=== PATIENT | male | born 1975 | race Two or more races ===

== ENCOUNTER 2017-08-11 19:59 | Emergency (ER) | payer OTHER ==
[~2017-08-11] VITALS: Ht 170.2 cm; Wt 63.5 kg
[2017-08-11 20:16] VITALS: BP 116/79
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
[2017-08-11] MEDS ORDERED: Tetanus/Diptheria/Pertussis Vaccine 0.5ml Syr IM ONE (20:45)
[2017-08-11] MEDS ORDERED: TYLENOL EXTRA500 MG ORAL (21:38)
[2017-08-11] MEDS ORDERED: Bacitracin Oint UD TOPIC ONE (21:45)
[2017-08-11 21:56] VITALS: BP 132/86
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
--- NOTE | 2017-08-12 09:48 | Diagnostic Imaging Report ---
Indication: Headache Technique: Contiguous 5 mm thick transaxial imaging of the head obtained in a Siemens Sensation [address] scanner. Soft tissue and bone windows generated. Automatic Exposure Control was utilized. Total Dose length Product (DLP): 3689.[address] Dose Index Volume (CTDIvol): 70.38,70.38,28.19,28.19 mGy Comparison: none Findings: There is mild prominence of the ventricles, basal cisterns, and cerebral sulci consistent with atrophy. Mild, nonspecific, white matter hypoattenuation is noted throughout the brain consistent with chronic small vessel disease. Tiny punctate focus of calcium noted in the right temporal lobe. This is probably in the parenchyma and may be due to cysticercosis. There is no midline shift, edema, acute hemorrhage, mass effect, or abnormal extra-axial fluid collections. Bones and extra osseous soft tissues are unremarkable. Impression: No acute intracranial bleed, mass effect or edema. Mild atrophy of the brain. Right temporal lobe calcification nonspecific, but probably due to cysticercosis. Nonspecific white matter hypoattenuation probably due to chronic small vessel disease. [facility] has communicated the preliminary results to the Emergency Department. Their findings are largely concordant with this report. The CT scanner at [facility] is accredited by the [employer] and the scans are performed using dose optimization techniques as appropriate to a performed exam including Automatic Exposure control.
== END 2017-08-11 21:54 ==
LOC: EDBD 19:59 → EMR 20:34
DX: S00.83XA Contusion of other part of head, initial encounter (principal); S00.81XA Abrasion of other part of head, initial encounter; S00.12XA Contusion of left eyelid and periocular area, initial encounter; Y04.2XXA Assault by strike against or bumped into by another person, initial encounter; Y92.9 Unspecified place or not applicable; Z23 Encounter for immunization; Z88.0 Allergy status to penicillin
CPT/HCPCS: 70450; 70486; 90471; 90715; 99284